=== PATIENT | male | born 1990 | race Caucasian/White ===

== ENCOUNTER → 2021-10-08 | Outpatient (CLI) | payer OTHER ==
[~2021-10-08] MED LIST: BENTYL 20MG TAB20 MG PO; CIPRO500 MG PO; FLAGYL500 MG PO; ZOFRAN4 MG PO
== END ==
LOC: KOH-I 10-05 14:30
DX: M50.121 Cervical disc disorder at C4-C5 level with radiculopathy (principal); M48.02 Spinal stenosis, cervical region
CPT/HCPCS: 72141

== ENCOUNTER → 2021-10-19 | Outpatient (CLI) | payer OTHER ==
[~2021-10-19] MED LIST changes: +CRESTOR10 MG PO; +GABAPENTIN300 MG PO; +VALSARTAN-HCTZ1 EAC4 PO; +ZYRTEC10 MG PO
[2021-10-19 09:53] LABS: HEMOGLOBIN 15.5 gm/dl (14.0-17.5); RED BLOOD COUNT 5.16 M/UL (4.20-5.50)
[2021-10-19 10:22] LABS: BUN/CREATININE RATIO 12 (0-10)
== END ==
LOC: OPSV2 08:00 → EDSTATUS 08:00 → OPSV2 08:39
PROVIDERS: Orthopaedic Surgery
DX: Z01.818 Encounter for other preprocedural examination (principal); M54.12 Radiculopathy, cervical region; G95.9 Disease of spinal cord, unspecified
CPT/HCPCS: 36415; 71046; 80048; 81001; 85027; 85610; 85730; 87081; 93005

== ENCOUNTER → 2021-11-02 | Outpatient (CLI) | payer OTHER ==
[~2021-11-02] MED LIST changes: +ROXICODONE5 MG PO
== END ==
LOC: KOH-I 08:23
DX: M50.121 Cervical disc disorder at C4-C5 level with radiculopathy (principal); M50.021 Cervical disc disorder at C4-C5 level with myelopathy; M48.02 Spinal stenosis, cervical region; M48.8X2 Other specified spondylopathies, cervical region; M25.78 Osteophyte, vertebrae
CPT/HCPCS: 72125

== ENCOUNTER → 2021-11-05 | Outpatient (CLI) | payer OTHER ==
[2021-11-05 10:08] LABS: BUN/CREATININE RATIO 7 (0-10)
== END ==
LOC: LAB 09:11
PROVIDERS: Orthopaedic Surgery
DX: Z01.812 Encounter for preprocedural laboratory examination (principal)
CPT/HCPCS: 36415; 80048; 86850; 86900; 86901

== ENCOUNTER 2021-11-06 07:54 | Day surgery (SDC) | payer OTHER ==
[~2021-11-06] VITALS: Ht 177.8 cm; Wt 95.3 kg
[~2021-11-06 07:54] MED LIST changes: -ROXICODONE5 MG PO
[2021-11-06 20:21] LABS: HEMOGLOBIN 13.6 gm/dl (14.0-17.5); RED BLOOD COUNT 4.59 M/UL (4.20-5.50); WHITE BLOOD COUNT 9.7 K/UL (4.5-11.0)
[2021-11-06 20:40] LABS: BUN/CREATININE RATIO 10 (0-10)
[2021-11-07 04:42] LABS: HEMOGLOBIN 12.6 gm/dl (14.0-17.5); RED BLOOD COUNT 4.36 M/UL (4.20-5.50); WHITE BLOOD COUNT 8.4 K/UL (4.5-11.0)
[2021-11-07 05:00] LABS: BUN/CREATININE RATIO 11 (0-10)
[2021-11-07] MEDS ORDERED: ROXICODONE5 MG PO (09:41)
== END 2021-11-07 11:40 | disposition home or self-care (01) ==
LOC: OR 07:54 → CCU 19:36 → OR 11-07 11:40
PROVIDERS: Orthopaedic Surgery
DX: M54.12 Radiculopathy, cervical region (principal); G95.9 Disease of spinal cord, unspecified; M48.02 Spinal stenosis, cervical region; J96.02 Acute respiratory failure with hypercapnia; J96.01 Acute respiratory failure with hypoxia; I10 Essential (primary) hypertension; E78.5 Hyperlipidemia, unspecified; J45.909 Unspecified asthma, uncomplicated; F41.9 Anxiety disorder, unspecified; F17.210 Nicotine dependence, cigarettes, uncomplicated; F32.A Depression, unspecified; N17.9 Acute kidney failure, unspecified; Z79.899 Other long term (current) drug therapy
CPT/HCPCS: 36415; 36600; 71045; 72040; 72050; 76000; 80048; 82803; 83735; 85025; 94640; 94660; 94760; C1713; C1762; J0690; J1100; J1170; J2250; J2405; J2704; J3010; J3475; J7040